=== PATIENT | female | born 1990 | race Native Hawaiian/Other Pacific Islander ===

== ENCOUNTER 2022-10-23 07:47 | Outpatient (CLI) | payer BC, SELFPAY ==
[2022-10-23 09:38] LABS: Albumin* 4.4 g/dL (3.3-5.0); Chloride* 108 mmol/L (96-114)
[2022-10-23 09:39] LABS: Potassium* 4.7 mmol/L (3.6-5.1)
[2022-10-23 09:41] LABS: Alanine Aminotransferase* 73 U/L (4-35); Alkaline Phosphatase* 90 U/L (40-150); Aspartate Amino Transferase* 45 U/L (12-35); Bilirubin Total* 0.4 mg/dL (0.1-1.5); Blood Urea Nitrogen* 15 mg/dL (5-24); Carbon Dioxide* 23 mmol/L (20-32); Cholesterol* 155 mg/dL (90-199); Creatinine* 0.7 mg/dL (0.5-1.5); Estimated Glomerular Filt Rate 119 ml/min; Glucose* 244 mg/dL (60-115); Total Protein* 6.8 g/dL (6.0-8.3); Triglycerides* 347 mg/dL (40-149)
[2022-10-23 09:42] LABS: Calcium* 9.6 mg/dL (8.4-10.6); HDL Cholesterol* 38 mg/dL (>=50); LDL Cholesterol Calculated 48 mg/dL (<100)
[2022-10-23 09:54] LABS: Sodium* 140 mmol/L (135-149)
== END 2022-10-23 07:48 | disposition home or self-care (01) ==
LOC: NFLDREF 07:47
PROVIDERS: PCP Family Medicine; Visit Provider Family Medicine
DX: E11.9 Type 2 diabetes mellitus without complications (principal); R63.5 Abnormal weight gain; E66.9 Obesity, unspecified
CPT/HCPCS: 80053; 80061; 82043; 82570; 84443

== ENCOUNTER 2022-10-24 08:33 | Outpatient (CLI) | payer BC, SELFPAY ==
[2022-10-24 11:07] LABS: Creatinine Urine 117.3 mg/dL
[2022-10-24 11:11] LABS: Microalbumin Creatinine Ratio 10 mg/g (0-30); Microalbumin Urine 2 mg/dL
== END 2022-10-24 08:34 | disposition home or self-care (01) ==
LOC: NFLDREF 08:33
PROVIDERS: PCP Family Medicine; Visit Provider Family Medicine
DX: E11.9 Type 2 diabetes mellitus without complications (principal); E66.9 Obesity, unspecified
CPT/HCPCS: 82043; 82570

== ENCOUNTER 2023-01-22 09:48 | Outpatient (CLI) | payer BC, SELFPAY ==
[2023-01-22 13:30] LABS: Chlamydia DNA Amplified* NOT DETECTED (No Detected); GC DNA Amplified* NOT DETECTED (No Detected)
== END 2023-01-22 09:49 | disposition home or self-care (01) ==
PROVIDERS: PCP Family Medicine; Visit Provider Obstetrics & Gynecology
DX: N89.8 Other specified noninflammatory disorders of vagina (principal); Z12.4 Encounter for screening for malignant neoplasm of cervix
CPT/HCPCS: 87070; 87186; 87491; 87591

== ENCOUNTER 2023-01-28 21:01 | Outpatient (CLI) | payer BC, SELFPAY ==
--- OUTSIDE RECORDS SUMMARY | 2023-01-28 21:03 | XMS_ITS | Continuity of Care Document ---
:1990 Author Organization [facility] Address [address] [address] [place] [address] Phone Care Team Providers Name Role Phone No Information Unavailable Unavailable Allergies, Adverse Reactions, Alerts Substance Reaction Status Criticality No Known Allergies Active No Informatio n Medications Medication Instructions Dosage Effective Dates (start - stop) Sta tus Comments No Drug Therapy Prescribed Procedures Procedure Date Established Level 2 New Level 4 or 45-59 min Advance Directives Directive Yes / No Effective Date File Name No Information Encounters Encounter Practice Location Reason(s) Diagnoses Date Provider Provide rs Description For Visit Copied on Encounter [facility] No Information No Digest[facility] - [facility], [address] [address], [place], [place], [id number], tel:[phone] Established [facility] Fatty Shaunna LUDWIG Referr ing Level 2 [facility] Symptoms liverElevated Emelia. Prov ider: [facility], or liver function [address] [facility] [address], (chief ceruloplasmin Sky RAMIREZ MD, [address] [place] complaint) level [address] [address], [place], [place], [facility] [id number], [place], , [place] [id number], [address]. tel:[phone]. tel:[phone] tel:[phone] [address] [facility] Elevated liver Shaunna LUDWIG [facility] function tests 0-202 Emelia. [facility], [address] [address], Sky RAMIREZ, [place] [address], , [place], [place], [id number], [place], [place] [id number], tel:[phone]. [phone] tel:[phone] New Level 4 [facility] Elevated Shaunna LUDWIG Refer ring or 45-59 min [facility] Symptoms glucose Emelia. Provi howie: [facility], or [facility] [address] [facility]cerns [facility]levated [facility] [address], (chief liver function Street MD ASHLEY, [address] [facility] complaint) tests [address] , s, [place], [place], [place] [id number], [place], , [place] [id number], [address]. tel:[phone] [place]. tel:[phone] [phone] [id number] [facility] No Information No Referring Digestive Information Provider: Magdaleno QUINONES, [address] Denilson Case MD, [address] [facility], , [place], [place] [id number], , [place] [address]. tel:[phone] tel:[phone] Family History Family Member Type Diagnosis Age At Onset Mother Problem (finding) malignant neoplasm of breast i n first degree relative Brother Problem (finding) hypertension Daughter Problem (finding) Alive and well Father Problem (finding) stroke Mother Problem (finding) Heart disease Father Problem (finding) hypertension Mother Problem (finding) diabetes mellitus type 2 Brother Problem (finding) Alive and well Sister Problem (finding) fibromyalgia Immunizations Vaccine Date Status Comments influenza virus vaccine, administered Note: [facility] bi-directional unspecified formulation interfac e ; Source: Other Registry tetanus toxoid, reduced administered Note: [place] [facility] bi-directional diphtheria toxoid, and interface ; Source: Other acellular pertussis vaccine, Reg istry adsorbed Payers Payer name Insurance type Covered democrat ID Authorization(s ) No Information Social History Type Description Quantity Date Captured Comments Sex Female Smoking Status No Information Chief Complaint And Reason For Visit No Information Reason For Referral Reason For Referral No Information Plan Of Treatment Date Type Action Status Referral Ordered: ordered Copper Appointment date/timeframe: -today Referral Ordered: ordered Copper, Urine 24 Hr Appointment date/timeframe: -today Referral Ordered: ordered Hemoglobin A1c Appointment date/timeframe: 08/25/2020 History Of Present Illness Encounter Date Complaint History Of Present I llness GI Symptoms or Concerns The patient is a very pleasant 30-year-old woman who I had a vi rtual visit with today to follow up for elevat ion of her liver tests, likely fatty liver a s well as low ceruloplasmin level. The patient was initially referred to GI Clini c in August 2020. At that time, she had labs d one at her [facility], which showed a glucose of 168, ALT 118, AST 81, and alk phos 71. CRP was normal. TSH was normal. TTG was checked and was normal. Platelets we re normal at 212,000. The patient has also had a CT scan which showed diffuse fatty liver. No other pathologies.CT did incidentally not ed atrophic left kidney, which was chronic.Th e patient has a body mass index of over 35. Sh e does not take any prescribed medicatio ns. She occasionally uses nonsteroidal anti-in flammatories. She does not drink alcohol. She h as no known family history of liver disease nydia t she can remember. Mom does have diabetes a nd her dad does have high cholesterol.We did s ome additional lab work on GI Symptoms or Concerns The patient is a pleasant 29-year-old woman I had a virtual visit with today regarding elevation of liver t ests and abnormal liver imaging.The patient was seen at the [facility] on July 16, 2020. At that time, laboratories were ch ecked. It was 04:30 in the afternoon. Her gluco se was 168. ALT 118, AST 81, bilirubin 0.5, a lkaline phosphatase at 71. C-reactive protein n egative. TSH 2.3. TTG was checked and was norm al. Hemoglobin normal at 14.6. Platelets norm al at 212,000 and creatinine normal at 0.6. The patient also had abdominal CT scan do ne, which noted severe diffuse hepatic stea tosis and no other liver pathologies and no o ther intra-abdominal pathologies other th an chronic atrophic left kidney.The patient, per the documents, has a body mass index of 3 5.5. She does not take any prescribed medicatio ns, but occasionally uses a multivitamin yan d DIM. She only occasionally uses no nsteroidal anti-inflammatories. She does not drink alcohol or smoke. Sh nely has n Functional Status Date Functional Assessment No Information Medications Administered Medication Instructions Dosage Effective Dates (start - stop) Sta tus Comments No Drug Therapy Prescribed Instructions Date Instruction Additional Informati on 1. Your liver tests are likely elevated Related to Fatty liver due to fatty liver disease. Please continue to try for a lower carbohydrate diet and increased exercise. Weight loss is what will help reduce the amount of fatty liver and improve liver tests.2. Due to the low ceruloplasmin, we can check your urine and serum copper. Because you lack neurological symptoms, if theses tests are normal no further work up is likey necessary. If they are abnormal, we can discuss next steps. 1. Check autoimmune liver markers, Relat ed to Elevated glucose level check hemoglobin A1C given elevated blood glucose, iron levels2. If blood work all negative, this is likely fatty liver. It was also seen on the CT scan. The current treatment for fatty liver is weight loss, lower carbohydrate diet and increased exercise. This will help reduce the amount of fat in the liver and should decrease your liver tests. This will also help reduce the risk of liver cirrhosis in the future. Assessments Type Assessment Date No Information Patient Care Teams Name Effective Dates (start - stop) Status M arleth No Information
--- NOTE | 2023-02-11 08:55 | W.PM.SLEEP ---
Sleep Study Details Details Interpreting Provider: Asya Date of Sleep Study: 01/28/23 Sleep Study Details: STUDY TYPE:? Hospital ? BMI:? 35.4 ORDERING PROVIDER:? Denilson INDICATION:? Concerns about sleep apnea ? SLEEP SUMMARY:? Total sleep time 417, efficiency 95, arousal index 7.2 RESPIRATORY SUMMARY:? AHI 7.2, RDI 9.8 Supine AHI 10, supine REM AHI 58.5 Nonsupine AHI 3.8, nonsupine RDI 6.9 PERIODIC LIMB MOVEMENTS OF SLEEP:? None CARDIAC:? Awake 82, asleep 73. No arrhythmias noted IMPRESSION:? Mild obstructive sleep apnea with supine and REM dependency RECOMMENDATION: Treatment options would include AutoSet CPAP at a pressure of 4-17 versus a dental appliance. Weight loss is also recommended.
== END 2023-01-28 21:02 | disposition home or self-care (01) ==
LOC: SLEEP 21:01
PROVIDERS: PCP Family Medicine; Visit Provider Family Medicine
DX: G47.33 Obstructive sleep apnea (adult) (pediatric) (principal)
CPT/HCPCS: 95810

== ENCOUNTER 2023-05-12 10:36 | Emergency (ER) | payer BC, SELFPAY ==
[2023-05-12 10:44] VITALS: BP 135/103; PULSE 79; RESP 16; TEMP 36.6; O2SAT 98; BMI 32.4
--- NOTE | 2023-05-12 11:12 | ED.GENADULT ---
HPI - General Adult General Chief complaint: Unspecified Complaint, Adult Stated complaint: broken nail Time Seen by Provider: 05/12/23 11:00 History of Present Illness HPI narrative: This 32-year-old female has acrylic nails on her fingers. She reached into her purse and the nail got caught somehow and pulled back away from the nail bed. She reports some pain but there is no ongoing bleeding or sign of other injury. The nail itself is intact. It appears to have avulsed on the distal portion of the nail bed but not involving the root of the nail. Related Data Home Medications Medication Instructions Recorded Confirmed aripiprazole 15 mg tablet 15 mg PO DAILY 10/28/22 03/19/23 hydroxyzine pamoate 25 mg capsule 25 mg PO DAILY 10/28/22 03/19/23 lamotrigine 200 mg tablet 200 mg PO DAILY 10/28/22 03/19/23 levonorgestrel 21 mcg/24 hours (8 1 intrauterine ONCE 10/28/22 03/19/23 yrs) 52 mg intrauterine device Previous Rx's Medication Instructions Recorded metformin 1,000 mg tablet 1,000 mg PO BIDWMEAL #180 tabs 10/28/22 ketorolac 10 mg tablet 10 mg PO Q8H 5 days #15 tabs 05/12/23 Allergies Allergy/AdvReac Type Severity Reaction Status Date / Time No Known Allergies Allergy Unknown Verified 03/19/23 08:58 Review of Systems Status of ROS: Reports: 10 or more systems reviewed and unremarkable except as noted in History and below Narrative: Constitutional: No fevers, no weight gain or loss. Eyes: No discharge. No vision changes. HENT: No congestion, no sore throat, no ear pain. Cardiovascular: No chest pain, no palpitations. Respiratory: No shortness of breath, no wheezes, no cough. Gastrointestinal: No abdominal pain, no vomiting, no diarrhea. Genitourinary: No dysuria, no hematuria. Musculoskeletal: Normal range of motion. Finger nail injury as described above. Skin: No rashes, no pruritis. Neurological: No dizziness, weakness, sensory change, speech change. Endo/Heme/Allergies: No bruising or bleeding. No polydipsia. Pysch: no suicidality, no anxiety, no insomnia. All other systems reviewed and are negative. PFSH PFSH Medical History Tobacco use ?Z72.0 - Tobacco use (ICD-10) Surgical History History of section ?Z98.891 - History of uterine scar from previous surgery (ICD-10) Family History Other Breast cancer Colon cancer Diabetes Social History Smoking Status: Former smoker How often do you have a drink containing alcohol: never AUDIT-C Alcohol total score: 0 Non-prescribed substance use: denies use Little interest or pleasure in doing things: more than half the days Feeling down, depressed, or hopeless: several days Exam Narrative: Exam Narrative: Constitutional: Well-developed, well-nourished, no acute distress. HEENT: Normocephalic, atraumatic. Neck: Normal range of motion. Nontender. Supple. Heart: Regular. No murmurs. Normal rate. Intact distal pulses. Lungs: Clear to auscultation. No chest discomfort. No wheezes, rhonchi, or rales. Abdomen: Normal bowel sounds. Nontender. No rebound tenderness. Genitalia: Deferred. Back: No midline tenderness. Normal range of motion. Extremities: Normal range of motion. Left middle finger nail avulsion. Skin: Intact. No rash. Warm. No erythema or pallor. Neurologic: No altered sensation. No weakness. Alert and oriented. Psychiatric: No suicidality. No anxiety or depression. No insomnia. Nursing notes and vitals signs are reviewed. Const: Vital Signs, click to edit/add: Vital Signs - 24 hr 05/12/23 10:44 Temperature 97.9 F Pulse Rate [Right Pulse Oximeter] 79 Respiratory Rate 16 Blood Pressure [Ri ght Upper Arm] 135/103 H Pulse Oximetry 98 Oxygen Delivery Me thod Room Air Course Vital Signs Vital signs: Initial Vital Signs Temperature 97.9 F 05/12/23 10:44 Temperature Source Temporal Artery Scan 05/12/23 10:44 Pulse Rate 79 05/12/23 10:44 Pulse Rhythm Regular 05/12/23 10:44 Respiratory Rate 16 05/12/23 10:44 Blood Pressure 135/103 H 05/12/23 10:44 Blood Pressure Mean 113 H 05/12/23 10:44 Blood Pressure Position Sitting 05/12/23 10:44 Pulse Oximetry 98 05/12/23 10:44 Oxygen Delivery Method Room Air 05/12/23 10:44 Vital Signs Temperature 97.9 F 05/12/23 10:44 Pulse Rate 79 05/12/23 10:44 Respiratory Rate 16 05/12/23 10:44 Blood Pressure 135/103 H 05/12/23 10:44 Pulse Oximetry 98 05/12/23 10:44 Oxygen Delivery Method Room Air 05/12/23 10:44 Temperature 97.9 F 05/12/23 10:44 Pulse Rate 79 05/12/23 10:44 Respiratory Rate 16 05/12/23 10:44 Blood Pressure 135/103 H 05/12/23 10:44 Pulse Oximetry 98 05/12/23 10:44 Oxygen Delivery Method Room Air 05/12/23 10:44 Medical Decision Making MDM Narrative Medical decision making narrative: This patient has extra long acrylic fingernails and her left middle finger nail is avulsed. The base of the nail is intact but the patient is requesting the nail to be removed. She did receive a digital block of this finger using 1% lidocaine. The nail was rather significantly attached at its base and the patient did not wish to have more local anesthetic in order to completely remove the nail. I did use a nailing machine feeder and trim the nail back to avoid further avulsion injury. A Band-Aid was applied and then a finger splint was also placed. A prescription for Toradol is provided. Discharge Plan Discharge Clinical Impression: Avulsion of nail of left middle finger Patient Disposition: Home, Self-Care Condition: Stable Additional Instructions: Wear finger splint as needed. Take medication as needed and directed. Follow up with MD or return if worsening. Prescriptions: New ketorolac 10 mg tablet 10 mg PO Q8H 5 Days Qty: 15 0RF No Action lamotrigine 200 mg tablet 200 mg PO DAILY levonorgestrel 20 mcg/24 hours (8 yrs) 52 mg intrauterine device 1 intrauterine ONCE hydroxyzine pamoate 25 mg capsule 25 mg PO DAILY aripiprazole 15 mg tablet 15 mg PO DAILY metformin 1,000 mg tablet 1,000 mg PO BIDWMEAL Qty: 180 1RF Follow Up/Referrals: Osiel Oreilly MD [Primary Care Provider] - Stand Alone Forms: MyHealth Info Instructions
== END 2023-05-12 12:03 | disposition home or self-care (01) ==
PROVIDERS: Emergency Provider Emergency Medicine Emergency Medical Services; PCP Family Medicine
DX: S61.303A Unspecified open wound of left middle finger with damage to nail, initial encounter (principal); W22.8XXA Striking against or struck by other objects, initial encounter
CPT/HCPCS: 11730; 99283; 99284

== ENCOUNTER 2023-08-05 13:26 | Outpatient (CLI) | payer BC, SELFPAY ==
[2023-08-05 16:22] LABS: Chlamydia DNA Amplified* NOT DETECTED (No Detected); GC DNA Amplified* NOT DETECTED (No Detected)
== END 2023-08-05 13:27 | disposition home or self-care (01) ==
PROVIDERS: PCP Family Medicine; Visit Provider Registered Nurse
DX: N89.8 Other specified noninflammatory disorders of vagina (principal); Z11.3 Encounter for screening for infections with a predominantly sexual mode of transmission
CPT/HCPCS: 87086; 87102; 87186; 87491; 87591

== ENCOUNTER 2024-03-12 08:50 | Outpatient (CLI) | payer MEDICAID, SELFPAY ==
[2024-03-12 12:03] LABS: Chlamydia DNA Amplified* NOT DETECTED (No Detected); GC DNA Amplified* NOT DETECTED (No Detected)
== END 2024-03-12 08:51 | disposition home or self-care (01) ==
PROVIDERS: PCP Family Medicine; Visit Provider Registered Nurse
DX: N92.6 Irregular menstruation, unspecified (principal); Z11.3 Encounter for screening for infections with a predominantly sexual mode of transmission
CPT/HCPCS: 84443; 87491; 87591

== ENCOUNTER 2024-03-18 11:01 | Outpatient (CLI) | payer MEDICAID, SELFPAY ==
--- NOTE | 2024-03-18 11:00 | US_ITS ---
Patient: BOYD SANTA Facility:?[facility] Patient ID:?[id number] Site Patient ID:?[id number]. Site :?1990 Study:?US-OB Pelvis TA/TV Pelvic US-03/18/2024 12:13:34 PM Ordering Physician:?Rosanna John Final Report: INDICATION: Abnormal uterine bleeding, IUD. TECHNIQUE: Ultrasound pelvis transabdominal and transvaginal for better assessment or to better visualize the endometrium. Real-time sonographic images with spectral and color Doppler imaging of the ovaries were obtained. COMPARISON: 05/03/2014. FINDINGS: Uterus: 8.5 x 4.2 x 4.7 cm. Normal echotexture of the myometrium. No masses. Hypoechoic cleft along the lower uterine segment compatible with a section scar. Endometrium: Transvaginal imaging was performed to better evaluate the endometrium. Endometrial thickness measures 13 mm. Fluid is seen within the endocervical canal. There are echogenic foci within the lower uterine segment endometrial canal versus endocervical canal, which may represent calcifications or a vascular lesion/polyp. Appropriate position of the intrauterine device within the endometrial canal. Right ovary 3.6 x 2.4 x 2.3 cm. Left ovary 3.7 x 2.0 x 2.0 cm. Mildly complex cystic lesion within the right ovary with peripheral hypervascularity suggestive of a corpus luteum. Normal arterial and venous blood flow is demonstrated in both ovaries. Cul-de-sac: No significant free fluid. IMPRESSION: 1. Appropriate position of the intrauterine device. 2. Endometrial thickness measures 13 mm. 3. Small volume of fluid within the endocervical canal. Echogenic foci within the lower uterine segment/endocervical canal may represent small calcifications with twinkle artifact versus small vascular lesions, possibly polyps although hyperechoic appearance is somewhat atypical. Dictated by Bailey Ley MD @ 03/19/2024 3:53:39 PM Signed by:?Bailey Ley MD @03/19/2024 3:53:39 PM (Electronic Signature)
== END 2024-03-18 11:02 | disposition home or self-care (01) ==
LOC: US 11:01
PROVIDERS: PCP Family Medicine; Visit Provider Registered Nurse
DX: N92.6 Irregular menstruation, unspecified (principal); R93.89 Abnormal findings on diagnostic imaging of other specified body structures
CPT/HCPCS: 76830; 76856